=== PATIENT | female | born 1950 | race Caucasian/White ===

== ENCOUNTER 2019-03-03 15:50 | Inpatient (IN) ==
[2019-03-03 16:35] LABS: Basophils # 0.1 10*3/uL (0.0-0.2); Basophils % 0.5 % (0.0-0.8); Eosinophils # 0.4 10*3/uL (0.0-0.87); Eosinophils % 2.9 % (0.00-10.9); Hematocrit 33.1 VOL% (35.7-47.0); Hemoglobin 10.1 GM/DL (12.0-16.0); Immature Granulocytes % 1.7 %; Immature Granulocytes Absolute 0.22 #; Lymphocytes # 2.8 10*3/uL (1.4-4.0); Lymphocytes % 21.6 % (21.3-54.2); Mean Corpuscular HGB Conc 30.5 GM/DL (32-36); Mean Corpuscular Volume 99.4 FL (87-102); Mean Platelet Volume 10.9 FL (9.6-12.0); Monocytes % 6.8 % (1.7-12.7); Neutrophils % 66.5 % (38.7-73.9); Platelet Count 360 T/CUMM (130-400); Red Blood Count 3.33 MC/CUMM (3.8-5.5); Red Cell Distribution Width 13.9 % (9.3-17.3); White Blood Count 12.8 T/CUMM (4-12)
[2019-03-03 16:43] LABS: INR 0.9; PT Patient Result 10.3 SECS
[2019-03-03 16:45] LABS: Alanine Aminotransferase 21 U/L (13-56); Albumin 3.1 G/DL (3.4-5.0); Alkaline Phosphatase 116 U/L (45-117); Aspartate Amino Transferase 26 U/L (0-37); Bilirubin,Total < 0.39 MG/DL (0.2-1.0); Blood Urea Nitrogen 34 MG/DL (7-18); Calcium 9.9 MG/DL (8.5-10.1); Glucose 119 MG/DL (74-106); Osmolality,Calculated 296.7 MOS/KG (273-304); Total Protein 7.5 G/DL (6.4-8.3)
[2019-03-03 18:14] LABS: Apearance,Urine CLEAR (Clear); Bacteria,Urine Occasional /HPF (Few); Bilirubin,Urine Negative (Negative); Blood, Urine Negative (Negative); Glucose,Urine (UA) Negative (Negative); Hyaline Casts,Urine 21 /LPF (0-3); Ketones,Urine Negative (Negative); Mucus,Urine Occasional /LPF (Occasional); Nitrite,Urine Negative (Negative); Protein,Urine Negative; RBC,Urine 4 /HPF (0-4); Squamous Epithelial Cell,Urine Occasional /HPF (0-10); Urine Color Yellow (Yellow); Urine Specific Gravity 1.021 (1.001-1.035); Urine Urobilinogen < 2.0 EU/DL (0.2-1.0); WBC,Urine 54 /HPF (0-6)
[2019-03-03 18:26] LABS: Barbiturates Screen,Urine Negative (Negative); Benzodiazepines Screen,Urine Negative (Negative); Cannabinoid Screen,Urine Negative (Negative); Opiate Screen,Urine Negative (Negative); Phencyclidine Screen,Urine Negative (Negative)
[2019-03-03] MEDS ORDERED: HEPARIN DRIP 25,000 UNITS/500 ML PREMIX IV SCH (18:30)
[2019-03-03] MEDS ORDERED: DEXTROSE 50% 25 GM/50 ML VIAL IV PRN (20:00)
[2019-03-03] MEDS ORDERED: ONDANSETRON 4 MG/2 ML VIAL IV PRN (20:00)
[2019-03-03] MEDS ORDERED: LABETALOL 20 MG/4 ML SYRINGE IV PRN (20:00)
[2019-03-03] MEDS ORDERED: GLUCAGON 1 MG VIAL IM PRN (20:00)
[2019-03-04] MEDS: diphenhydrAMINE CAP 25 MG CAPSULE PO SCH ×3 (01:44→20:15)
[2019-03-04 02:38] LABS: Basophils # 0.1 10*3/uL (0.0-0.2); Basophils % 0.5 % (0.0-0.8); Eosinophils # 0.4 10*3/uL (0.0-0.87); Eosinophils % 2.8 % (0.00-10.9); Hematocrit 31.7 VOL% (35.7-47.0); Hemoglobin 9.9 GM/DL (12.0-16.0); Immature Granulocytes % 1.3 %; Immature Granulocytes Absolute 0.17 #; Lymphocytes # 3.8 10*3/uL (1.4-4.0); Lymphocytes % 29.7 % (21.3-54.2); Mean Corpuscular HGB Conc 31.2 GM/DL (32-36); Mean Corpuscular Volume 97.5 FL (87-102); Mean Platelet Volume 11.1 FL (9.6-12.0); Monocytes % 6.4 % (1.7-12.7); Neutrophils % 59.3 % (38.7-73.9); Platelet Count 331 T/CUMM (130-400); Red Blood Count 3.25 MC/CUMM (3.8-5.5); Red Cell Distribution Width 13.9 % (9.3-17.3); White Blood Count 12.7 T/CUMM (4-12)
[2019-03-04] MEDS: INSULIN LISPRO 100 UNIT/ML SUBCUT SCH ×5 (02:51→20:17)
[2019-03-04] MEDS: SODIUM CHLORIDE 0.9% 1,000 ML IV SCH ×3 (02:52→15:03)
[2019-03-04] MEDS: LEVOFLOXACIN INJ 500 MG in PREMIX 1 EACH IV SCH (02:54)
[2019-03-04 03:00] LABS: Calcium 9.8 MG/DL (8.5-10.1); Osmolality,Calculated 296.7 MOS/KG (273-304); Risk Ratio 4.13; Thyroid Stimulating Hormone 4.37 uIU/ml (0.358-3.74); VLDL CHOLESTEROL 49.6 MG/DL
[2019-03-04] MEDS ORDERED: HEPARIN 5,000 UNIT/1 ML VIAL IV ONE ×2 (03:03→14:44)
[2019-03-04] MEDS: FAMOTIDINE 20 MG/2 ML VIAL IV SCH ×2 (09:12→20:11)
[2019-03-04] MEDS: ACETAMINOPHEN 500 MG TABLET PO PRN ×2 (12:44→20:13)
[2019-03-04 17:10] LABS: Free T4 (Free Thyroxine) 0.84 NG/DL (0.76-1.46)
[2019-03-04] MEDS: GABAPENTIN 300 MG CAPSULE PO SCH (20:13)
[2019-03-04] MEDS: MAGNESIUM GLUCONATE 500 MG TABLET PO SCH (20:14)
[2019-03-04] MEDS: BACLOFEN 10 MG TABLET PO SCH (20:15)
[2019-03-04] MEDS: SOTALOL 80 MG TABLET PO SCH (20:17)
[2019-03-04] MEDS ORDERED: ESCITALOPRAM 10 MG TABLET PO SCH (21:00)
[2019-03-04] MEDS ORDERED: diphenhydrAMINE CAP 25 MG CAPSULE PO ONE (23:31)
[2019-03-05] MEDS: LEVOFLOXACIN INJ 500 MG in PREMIX 1 EACH IV SCH (03:51)
[2019-03-05] MEDS: SODIUM CHLORIDE 0.9% 1,000 ML IV SCH (07:31)
[2019-03-05] MEDS: INSULIN LISPRO 100 UNIT/ML SUBCUT SCH ×2 (07:38→11:50)
[2019-03-05] MEDS ORDERED: MAGNESIUM SULF RIDER 4 GM in PREMIX 1 EACH IV ONE (07:47)
[2019-03-05] MEDS ORDERED: COENZYME Q10 100 MG CAPSULE PO SCH (09:00)
[2019-03-05] MEDS ORDERED: ATORVASTATIN 20 MG TABLET PO SCH (09:00)
[2019-03-05] MEDS ORDERED: DILTIAZEM CD 120 MG CAPSULE PO SCH (09:00)
[2019-03-05] MEDS ORDERED: ALLOPURINOL 300 MG TABLET PO SCH (09:00)
[2019-03-05 09:06] LABS: Calcium 9.9 MG/DL (8.5-10.1); Osmolality,Calculated 289.7 MOS/KG (273-304)
[2019-03-05] MEDS: FAMOTIDINE 20 MG/2 ML VIAL IV SCH (09:13)
[2019-03-05] MEDS: diphenhydrAMINE CAP 25 MG CAPSULE PO SCH (09:14)
[2019-03-05] MEDS: SOTALOL 80 MG TABLET PO SCH (09:14)
[2019-03-05] MEDS: MAGNESIUM GLUCONATE 500 MG TABLET PO SCH (09:14)
[2019-03-05] MEDS: BACLOFEN 10 MG TABLET PO SCH (09:14)
[2019-03-05] MEDS: GABAPENTIN 300 MG CAPSULE PO SCH (09:14)
[2019-03-05] MEDS ORDERED: RIVAROXABAN 20 MG TABLET PO SCH (11:30)
[2019-03-05 12:37] VITALS: BP 116/62
== END 2019-03-05 15:50 | disposition home health service (06) | DRG 880 ==
LOC: EDBD → EDUNIT# → N.ED 15:50 → N.EDINP 20:00 → N.4E 22:24
PROVIDERS: ADMIT Internal Medicine Cardiovascular Disease; ATTEND Internal Medicine Cardiovascular Disease

== ENCOUNTER 2019-03-06 13:23 | Observation (INO) ==
[2019-03-06] MEDS ORDERED: ONDANSETRON 4 MG/2 ML VIAL IV STA (13:54)
[2019-03-06] MEDS ORDERED: ATROPINE 1 MG/10 ML SYRINGE IV STA (13:54)
[2019-03-06 14:12] LABS: Basophils # 0.1 10*3/uL (0.0-0.2); Basophils % 0.5 % (0.0-0.8); Eosinophils # 0.3 10*3/uL (0.0-0.87); Eosinophils % 1.7 % (0.00-10.9); Hematocrit 34.1 VOL% (35.7-47.0); Hemoglobin 10.7 GM/DL (12.0-16.0); Immature Granulocytes % 2.1 %; Immature Granulocytes Absolute 0.36 #; Lymphocytes # 2.4 10*3/uL (1.4-4.0); Lymphocytes % 13.8 % (21.3-54.2); Mean Corpuscular HGB Conc 31.4 GM/DL (32-36); Mean Corpuscular Volume 96.6 FL (87-102); Monocytes % 6.1 % (1.7-12.7); Neutrophils % 75.8 % (38.7-73.9); Platelet Count 415 T/CUMM (130-400); Red Blood Count 3.53 MC/CUMM (3.8-5.5); White Blood Count 17.5 T/CUMM (4-12)
[2019-03-06 14:27] LABS: PT Patient Result 10.8 SECS (9.6-12.2)
[2019-03-06 14:28] LABS: Alanine Aminotransferase 19 U/L (13-56); Albumin 3.2 G/DL (3.4-5.0); Alkaline Phosphatase 116 U/L (45-117); Aspartate Amino Transferase 17 U/L (0-37); Blood Urea Nitrogen 21 MG/DL (7-18); Calcium 10.5 MG/DL (8.5-10.1); Glucose 137 MG/DL (74-106); Osmolality,Calculated 285.3 MOS/KG (273-304); Total Protein 7.9 G/DL (6.4-8.3); Troponin I < 0.015 NG/ML (0.00-0.045); Uric Acid 7.7 MG/DL (2.6-6.0)
[2019-03-06] MEDS ORDERED: ONDANSETRON 4 MG/2 ML VIAL IV PRN (16:10)
[2019-03-06] MEDS ORDERED: DOCUSATE SODIUM 100 MG CAPSULE PO PRN (16:10)
[2019-03-06] MEDS: FOLIC ACID 1 MG TABLET PO SCH (17:43)
[2019-03-06] MEDS: COENZYME Q10 100 MG CAPSULE PO SCH (17:43)
[2019-03-06] MEDS: MAGNESIUM SULF RIDER 2 GM in PREMIX 1 EACH IV SCH (17:46)
[2019-03-06] MEDS: GABAPENTIN 300 MG CAPSULE PO SCH (20:38)
[2019-03-06] MEDS: MAGNESIUM OXIDE 400 MG TABLET PO SCH (20:38)
[2019-03-06] MEDS: NITROFURANTOIN MACRO/MONO 100 MG CAPSULE PO SCH (20:38)
[2019-03-06] MEDS: ESCITALOPRAM 10 MG TABLET PO SCH (20:39)
[2019-03-06] MEDS: BACLOFEN 10 MG TABLET PO SCH (20:39)
[2019-03-06] MEDS: ACETAMINOPHEN 325 MG TABLET PO PRN (20:39)
[2019-03-06 23:05] LABS: Apearance,Urine CLOUDY (Clear); Bacteria,Urine Occasional /HPF (Few); Bilirubin,Urine Negative (Negative); Blood, Urine Negative (Negative); Calcium Oxalate Crystals,Urine Occasional /HPF (Few); Glucose,Urine (UA) Negative (Negative); Ketones,Urine Negative (Negative); Mucus,Urine Occasional /LPF (Occasional); Nitrite,Urine Negative (Negative); Protein,Urine Negative; RBC,Urine 4 /HPF (0-4); Squamous Epithelial Cell,Urine Few /HPF (0-10); Transitional Epi Cells,Urine Occasional /HPF (<1); Urine Color Yellow (Yellow); Urine Specific Gravity 1.019 (1.001-1.035); Urine Urobilinogen < 2.0 EU/DL (0.2-1.0); WBC,Urine 29 /HPF (0-6)
[2019-03-07 05:20] LABS: Basophils # 0.1 10*3/uL (0.0-0.2); Basophils % 0.4 % (0.0-0.8); Eosinophils # 0.3 10*3/uL (0.0-0.87); Eosinophils % 2.1 % (0.00-10.9); Hematocrit 31.6 VOL% (35.7-47.0); Hemoglobin 9.6 GM/DL (12.0-16.0); Immature Granulocytes % 1.4 %; Immature Granulocytes Absolute 0.16 #; Lymphocytes # 2.9 10*3/uL (1.4-4.0); Lymphocytes % 24.7 % (21.3-54.2); Mean Corpuscular HGB Conc 30.4 GM/DL (32-36); Mean Corpuscular Volume 97.8 FL (87-102); Mean Platelet Volume 10.6 FL (9.6-12.0); Monocytes % 6.8 % (1.7-12.7); Neutrophils % 64.6 % (38.7-73.9); Platelet Count 302 T/CUMM (130-400); Red Blood Count 3.23 MC/CUMM (3.8-5.5); Red Cell Distribution Width 13.9 % (9.3-17.3); White Blood Count 11.7 T/CUMM (4-12)
[2019-03-07 05:39] LABS: Albumin 2.9 G/DL (3.4-5.0); Bilirubin,Total 0.4 MG/DL (0.2-1.0); Osmolality,Calculated 290.8 MOS/KG (273-304)
[2019-03-07] MEDS: NITROFURANTOIN MACRO/MONO 100 MG CAPSULE PO SCH ×2 (08:49→20:28)
[2019-03-07] MEDS: COENZYME Q10 100 MG CAPSULE PO SCH (08:49)
[2019-03-07] MEDS: LISINOPRIL/HCTZ 20-12.5 MG TABLET PO SCH (08:49)
[2019-03-07] MEDS: BACLOFEN 10 MG TABLET PO SCH ×3 (08:50→20:28)
[2019-03-07] MEDS: THIAMINE 100 MG TABLET PO SCH (08:50)
[2019-03-07] MEDS: PANTOPRAZOLE 40 MG TABLET PO SCH (08:50)
[2019-03-07] MEDS: FOLIC ACID 1 MG TABLET PO SCH (08:50)
[2019-03-07] MEDS: GABAPENTIN 300 MG CAPSULE PO SCH ×3 (08:50→20:28)
[2019-03-07] MEDS: ATORVASTATIN 20 MG TABLET PO SCH (08:50)
[2019-03-07] MEDS: ALLOPURINOL 300 MG TABLET PO SCH (08:50)
[2019-03-07] MEDS: MAGNESIUM SULF RIDER 2 GM in PREMIX 1 EACH IV SCH (08:52)
[2019-03-07] MEDS: MAGNESIUM OXIDE 400 MG TABLET PO SCH ×2 (08:57→20:27)
[2019-03-07] MEDS: RIVAROXABAN 20 MG TABLET PO SCH (10:47)
[2019-03-07] MEDS: ACETAMINOPHEN 325 MG TABLET PO PRN (14:15)
[2019-03-07] MEDS: ESCITALOPRAM 10 MG TABLET PO SCH (20:28)
[2019-03-08] MEDS: ACETAMINOPHEN 325 MG TABLET PO PRN ×3 (01:45→23:52)
[2019-03-08 05:25] LABS: Hematocrit 32.7 VOL% (35.7-47.0); Hemoglobin 10.5 GM/DL (12.0-16.0)
[2019-03-08] MEDS: COENZYME Q10 100 MG CAPSULE PO SCH (09:51)
[2019-03-08] MEDS: ALLOPURINOL 300 MG TABLET PO SCH (09:51)
[2019-03-08] MEDS: MAGNESIUM OXIDE 400 MG TABLET PO SCH ×2 (09:51→20:49)
[2019-03-08] MEDS: GABAPENTIN 300 MG CAPSULE PO SCH ×3 (09:51→20:48)
[2019-03-08] MEDS: FOLIC ACID 1 MG TABLET PO SCH (09:51)
[2019-03-08] MEDS: LISINOPRIL/HCTZ 20-12.5 MG TABLET PO SCH (09:51)
[2019-03-08] MEDS: NITROFURANTOIN MACRO/MONO 100 MG CAPSULE PO SCH ×2 (09:51→20:49)
[2019-03-08] MEDS: ATORVASTATIN 20 MG TABLET PO SCH (09:52)
[2019-03-08] MEDS: PANTOPRAZOLE 40 MG TABLET PO SCH (09:52)
[2019-03-08] MEDS: THIAMINE 100 MG TABLET PO SCH (09:52)
[2019-03-08] MEDS: BACLOFEN 10 MG TABLET PO SCH ×3 (09:52→20:49)
[2019-03-08] MEDS: POLYETHYLENE GLYCOL POWDER 17 GM PACK PO SCH (09:55)
[2019-03-08] MEDS: RIVAROXABAN 20 MG TABLET PO SCH (12:25)
[2019-03-08] MEDS: hydrALAZINE 20 MG/1 ML VIAL IV PRN ×2 (17:02→23:49)
[2019-03-08] MEDS: ESCITALOPRAM 10 MG TABLET PO SCH (20:50)
[2019-03-09 06:02] LABS: Basophils # 0.1 10*3/uL (0.0-0.2); Basophils % 0.5 % (0.0-0.8); Eosinophils # 0.2 10*3/uL (0.0-0.87); Eosinophils % 1.8 % (0.00-10.9); Hematocrit 33.8 VOL% (35.7-47.0); Hemoglobin 10.8 GM/DL (12.0-16.0); Immature Granulocytes % 1.1 %; Immature Granulocytes Absolute 0.14 #; Lymphocytes # 2.2 10*3/uL (1.4-4.0); Lymphocytes % 17.6 % (21.3-54.2); Mean Corpuscular Volume 95.5 FL (87-102); Mean Platelet Volume 10.9 FL (9.6-12.0); Monocytes % 8.4 % (1.7-12.7); Neutrophils % 70.6 % (38.7-73.9); Platelet Count 319 T/CUMM (130-400); Red Blood Count 3.54 MC/CUMM (3.8-5.5); Red Cell Distribution Width 13.5 % (9.3-17.3); White Blood Count 12.7 T/CUMM (4-12)
[2019-03-09 06:18] LABS: Calcium 9.9 MG/DL (8.5-10.1); Osmolality,Calculated 282.4 MOS/KG (273-304)
[2019-03-09] MEDS ORDERED: SOTALOL 80 MG TABLET PO SCH (09:00)
[2019-03-09] MEDS: NITROFURANTOIN MACRO/MONO 100 MG CAPSULE PO SCH (09:21)
[2019-03-09] MEDS: THIAMINE 100 MG TABLET PO SCH (09:21)
[2019-03-09] MEDS: COENZYME Q10 100 MG CAPSULE PO SCH (09:21)
[2019-03-09] MEDS: ALLOPURINOL 300 MG TABLET PO SCH (09:21)
[2019-03-09] MEDS: MAGNESIUM OXIDE 400 MG TABLET PO SCH (09:21)
[2019-03-09] MEDS: POLYETHYLENE GLYCOL POWDER 17 GM PACK PO SCH (09:21)
[2019-03-09] MEDS: ATORVASTATIN 20 MG TABLET PO SCH (09:21)
[2019-03-09] MEDS: LISINOPRIL/HCTZ 20-12.5 MG TABLET PO SCH (09:21)
[2019-03-09] MEDS: FOLIC ACID 1 MG TABLET PO SCH (09:22)
[2019-03-09] MEDS: PANTOPRAZOLE 40 MG TABLET PO SCH (09:22)
[2019-03-09] MEDS: GABAPENTIN 300 MG CAPSULE PO SCH (09:22)
[2019-03-09] MEDS: BACLOFEN 10 MG TABLET PO SCH (09:25)
[2019-03-09] MEDS ORDERED: methylPREDNISolone SOD SUC 40 MG/1 ML VIAL IV ONE (10:30)
[2019-03-09] MEDS: RIVAROXABAN 20 MG TABLET PO SCH (11:58)
[2019-03-09 15:51] VITALS: BP 140/66
== END 2019-03-09 18:00 | disposition home or self-care (01) ==
LOC: EDBD → EDUNIT# → N.ED 13:23 → N.EDINP 13:23 → SUATTDRO 16:10 → N.TELEN 16:35
PROVIDERS: ADMIT Internal Medicine; ATTEND Internal Medicine